=== PATIENT | female | born 1990 | race Caucasian/White ===

== ENCOUNTER 2016-10-27 09:40 | Emergency (ER) | payer OTHER ==
[2016-10-27 09:55] VITALS: BP 120/66; PULSE 71; TEMP 98.2; BMI 30.9
[2016-10-27] MEDS ORDERED: IBUPROFEN 400 MG TABLET (FP) PO ONE ×2 (10:32→10:38)
[2016-10-27] MEDS ORDERED: guaiFENesin/CODEINE 5 ML UNIT-DOSE CUPS PO ONE ×2 (10:32→10:38)
--- NOTE | 2016-10-27 10:33 | PDOC ---
History of Present Illness - General Chief Complaint: Cold Symptoms Stated Complaint: PAIN/ BACK, STERNUM Time Seen by Provider: 10/27/16 09:57 History Source: Patient - History of Present Illness Timing/Duration: reports: this morning Associated Symptoms: reports: chest pain/soreness, cough, nasal congestion, nasal drainage. denies: earache, fever/chills, headache, muscle aches, shortness of breath, sore throat, wheezing Past History - Past Medical History Allergies/Adverse Reactions: Allergies Allergy/AdvReac Type Severity Reaction Status Date / Time No Known Allergies Allergy Verified 10/27/16 09:50 Home Medications: Ambulatory Orders NK [No Known Home Medication] 10/27/16 Other medical history: denies - Family Disease History Family Disease History: Diabetes: Grandparents (mat grandmother) - Psycho/Social/Smoking Cessation Hx Anxiety: No Suicidal Ideation: No Smoking Status: No Smoking History: Never smoked Number of Cigarettes Smoked Daily: 0 Hx Substance Use Treatment: No Review of Systems - Review of Systems Constitutional: Yes: Malaise. No: Chills, Fever HEENTM: Yes: Nose Congestion. No: Ear Pain, Throat Pain Respiratory: Yes: Cough. No: Shortness of Breath, Wheezing ABD/GI: No: Diarrhea, Nausea, Vomiting Neurological: No: Headache *Physical Exam - Vital Signs Last Vital Signs Temp Pulse Resp BP Pulse Ox 98.2 F 71 16 120/66 100 10/27/16 09:51 10/27/16 09:51 10/27/16 09:51 10/27/16 09:51 10/27/16 09:51 - Physical Exam General Appearance: Yes: Appropriately Dressed. No: Apparent Distress HEENT: positive: Normal ENT Inspection, Normal Voice. negative: Scleral Icterus (R), Scleral Icterus (L) Neck: positive: Supple. negative: Lymphadenopathy (R), Lymphadenopathy (L) Respiratory/Chest: positive: Lungs Clear. negative: Normal Breath Sounds, Respiratory Distress Integumentary: positive: Dry, Warm Neurologic: positive: Fully Oriented, Alert, Normal Mood/Affect Medical Decision Making - Medical Decision Making 10/27/16 10:35 26-year-old female, no significant history, was in usual state of health until several hours ago when she developed cough with pleuritic chest and back pain. Also complaining of nasal congestion. No ear pain, sore throat, shortness of breath, wheezing, nausea, vomiting or diarrhea. No known sick contacts. Patient well-appearing and stable with unremarkable exam. Most likely viral URI. DC with supportive treatment *DC/Admit/Observation/Transfer Diagnosis at time of Disposition: Upper respiratory infection Qualifiers: URI type: unspecified viral URI Qualified Code(s): J06.9 - Acute upper respiratory infection, unspecified - Referrals Referrals: Jane Hidalgo [Primary Care Provider] - - Patient Instructions Printed Discharge Instructions: DI for Viral Upper Respiratory Infection -- Adult Additional Instructions: Rest, maintain adequate hydration and take [id number] medications as needed for symptoms - Post Discharge Activity Work/School Note: Back to Work
== END 2016-10-27 10:40 | disposition home or self-care (01) ==
LOC: JERFT 09:40
DX: J06.9 Acute upper respiratory infection, unspecified (principal)
CPT/HCPCS: 99281-25

== ENCOUNTER 2018-09-14 11:51 | Emergency (ER) | payer OTHER ==
[2018-09-14 11:56] VITALS: BP 129/84; PULSE 80; TEMP 98.5; BMI 32.5
[2018-09-14] MEDS ORDERED: predniSONE 20 MG TABLET (UD) PO ONE (12:30)
[2018-09-14] MEDS ORDERED: ALBUTEROL SO4 2.5/IPRATROPIUM 0.5 INH SOL 3 ML VIAL.NEB. NEB ONE (12:30)
--- NOTE | 2018-09-14 12:30 | PDOC ---
History of Present Illness - General Chief Complaint: Sore Throat Stated Complaint: FEVER, SORE THROAT Time Seen by Provider: 09/14/18 12:17 History Source: Patient Exam Limitations: No Limitations - History of Present Illness Timing/Duration: reports: getting worse Severity: reports: mild, moderate Past History - Past Medical History Allergies/Adverse Reactions: Allergies Allergy/AdvReac Type Severity Reaction Status Date / Time No Known Allergies Allergy Verified 09/14/18 11:54 Home Medications: Ambulatory Orders Albuterol Sulfate Inhaler - [Ventolin HFA Inhaler -] 1 - 2 inh PO QID #1 inhaler 09/14/18 predniSONE [Deltasone -] 20 mg PO BID #8 tablet 09/14/18 COPD: No - Family Disease History Family Disease History: Diabetes: Grandparents (mat grandmother) - Immunization History Immunization Up to Date: Yes - Suicide/Smoking/Psychosocial Hx Smoking Status: No Smoking History: Never smoked Number of Cigarettes Smoked Daily: 0 Hx Alcohol Use: No Drug/Substance Use Hx: No Hx Substance Use Treatment: No *Physical Exam - Vital Signs Last Vital Signs Temp Pulse Resp BP Pulse Ox 98.5 F 80 16 129/84 98 09/14/18 11:54 09/14/18 11:54 09/14/18 11:54 09/14/18 11:54 09/14/18 11:54 - Physical Exam General Appearance: Yes: Nourished, Appropriately Dressed, Apparent Distress HEENT: positive: Nasal Congestion, Rhinorrhea Neck: positive: Supple. negative: Tender Respiratory/Chest: positive: Decreased Breath Sounds, Rhonchi, Wheezing (coarse inspiratory and expiratory wheezing, worse upper airways but throughout with moist cough). negative: Lungs Clear, Normal Breath Sounds Gastrointestinal/Abdominal: positive: Soft Musculoskeletal: negative: Normal Inspection Extremity: positive: Normal Capillary Refill Integumentary: positive: Dry, Warm, Pale Neurologic: positive: glove stitcher II-XII NML intact, Fully Oriented, Alert, Normal Mood/ Affect Moderate Sedation - Procedure Monitoring Vital Signs: Procedure Monitoring Vital Signs Temperature 98.5 F 09/14/18 11:54 Pulse Rate 80 09/14/18 11:54 Respiratory Rate 16 09/14/18 11:54 Blood Pressure 129/84 09/14/18 11:54 O2 Sat by Pulse Oximetry (%) 98 01/10/19 11:54 Progress Note - Progress Note Progress Note: Upper respiratory infection, some improvement with DuoNeb, will treat with prednisone and albuterol inhalers have follow-up as there is no evidence of bacterial infection *DC/Admit/Observation/Transfer Diagnosis at time of Disposition: Upper respiratory infection, viral - Discharge Dispostion Disposition: HOME Condition at time of disposition: Stable Decision to Admit order: No - Referrals - Patient Instructions Printed Discharge Instructions: DI for Viral Upper Respiratory Infection -- Adult Additional Instructions: Rest, drink lots of fluids: Teas, water, soups, Pedialyte Saltwater gargles Steamy showers/seem to face break up mucus Avoid contact with others until fevers and cough resolved Lots of handwashing and good hygiene Continue [id number] medications for symptomatic relief Tylenol or Motrin for fever and pain Continue albuterol inhalers- 2 puffs every 4-6 hours for the next 2 days then as needed for continued cough Prednisone as directed until completed Followup with private physician in one to 2 days Return to emergency department / pediatric hospital for worsened symptoms, fevers, dehydration - Post Discharge Activity Forms/Work/School Notes: Back to Work
[2018-09-14] MEDS ORDERED: predniSONE 20 MG TABLET (UD) ONE (12:31)
== END 2018-09-14 13:07 | disposition home or self-care (01) ==
LOC: JERFT 11:51
PROC: 3E0F7GC Introduction of Other Therapeutic Substance into Respiratory Tract, Via Natural or Artificial Opening (ICD-10-PCS; principal; 2018-09-14)
DX: J06.9 Acute upper respiratory infection, unspecified (principal); B97.89 Other viral agents as the cause of diseases classified elsewhere
CPT/HCPCS: 99281-25

== ENCOUNTER 2018-11-22 08:05 | Emergency (ER) | payer OTHER ==
[2018-11-22 08:12] VITALS: TEMP 98.7; BMI 34.7
[2018-11-22] MEDS ORDERED: SODIUM CHLORIDE 500 ML IV STA (08:50)
[2018-11-22] MEDS ORDERED: ACETAMINOPHEN 1000 MG/100 ML VIAL (NON FORMULARY) IVPB ONE (09:05)
[2018-11-22] MEDS ORDERED: ACETAMINOPHEN INJECTION 100 ML IVPB ONE (09:17)
--- NOTE | 2018-11-22 09:17 | PDOC ---
History of Present Illness - General Chief Complaint: Pain Stated Complaint: ABD PAIN Time Seen by Provider: 11/22/18 08:45 History Source: Patient Exam Limitations: Clinical Condition - History of Present Illness Initial Comments: 11/22/18 09:11 Patient with no significant past medical history present with complaint of 2 day history of sore throat, nasal congestion and right lower quadrant abdominal pain. Denies nausea, vomiting, fever and chills. Patient reported pain as cramping right lower abdominal pain radiating to the back. Denies urinary frequency, dysuria or burning of urination. LMP October 23. Denies any other symptoms Timing/Duration: other (2 days) Past History - Past Medical History Allergies/Adverse Reactions: Allergies Allergy/AdvReac Type Severity Reaction Status Date / Time No Known Allergies Allergy Verified 11/22/18 08:12 Home Medications: Ambulatory Orders Ibuprofen 800 mg PO Q8H PRN #20 tablet 11/22/18 COPD: No - Family Disease History Family Disease History: Diabetes: Grandparents (mat grandmother) - Immunization History Immunization Up to Date: Yes - Suicide/Smoking/Psychosocial Hx Smoking Status: No Smoking History: Never smoked Number of Cigarettes Smoked Daily: 0 Information on smoking cessation initiated: No Hx Alcohol Use: No Drug/Substance Use Hx: No Hx Substance Use Treatment: No Review of Systems - Review of Systems Able to Perform ROS?: Yes Is the patient limited Tajik proficient: No Constitutional: No: Chills, Fever, Malaise HEENTM: Yes: Symptoms Reported, See HPI, Nose Congestion, Throat Pain. No: Eye Pain, Blurred Vision, Tearing, Recent change in vision, Double Vision, Cataracts , Ear Pain, Ocular Prothesis, Ear Discharge, Nose Pain, Tinnitus, Nose Bleeding , Hearing Loss, Throat Swelling, Mouth Pain, Dental Problems, Difficulty Swallowing, Mouth Swelling, Other Respiratory: No: Symptoms reported, See HPI, Cough, Orthopnea, Shortness of Breath, SOB with Exertion, SOB at Rest, Stridor, Wheezing, Productive cough, Hemoptysis, Other Cardiac (ROS): No: Symptoms Reported, See HPI, Chest Pain, Edema, Irregular Heart Rate, Lightheadedness, Palpitations, Syncope, Chest Tightness, Other ABD/GI: Yes: See HPI, Abdominal cramping (right lower abdominal pain). No: Abd. Pain w/ defecation, Blood Streaked Bowels, Constipated, Diarrhea, Difficulty Swallowing, Nausea, Rectal Bleeding, Vomiting : No: Burning, Dysuria, Discharge, Frequency, Flank Pain, Hematuria, Incontinence, Urgency Musculoskeletal: Yes: See HPI Neurological: No: Numbness, Paresthesia, Dizziness All Other Systems: Reviewed and Negative *Physical Exam - Vital Signs Last Vital Signs Temp Pulse Resp BP Pulse Ox 98.7 F 76 17 124/74 100 11/22/18 08:10 11/22/18 08:10 11/22/18 08:10 11/22/18 08:10 11/22/18 08:10 - Physical Exam Comments: 11/22/18 09:14 GENERAL: Well developed, well nourished. Awake and alert in mild acute distress. HEENT: Normocephalic, atraumatic. PERRLA, EOMI. No conjunctival pallor. Sclera are non-icteric. Moist mucous membranes. Oropharynx is clear. NECK: Supple. Full ROM. CARDIOVASCULAR: Regular rate and rhythm. No murmurs, rubs, or gallops. Distal pulses are 2+ and symmetric. PULMONARY: No evidence of respiratory distress. Lungs clear to auscultation bilaterally. No wheezing, rales or rhonchi. ABDOMINAL: mild tenderness to RLQ area.Soft. Non-distended. No rebound or guarding. No organomegaly. Normoactive bowel sounds. MUSCULOSKELETAL Normal range of motion at all joints. SKIN: Warm and dry. Normal capillary refill. No rashes. No jaundice. NEUROLOGICAL: Alert, awake, appropriate. Gait is normal without ataxia. PSYCHIATRIC: Cooperative. Good eye contact. Appropriate mood General Appearance: Yes: Nourished, Appropriately Dressed, Mild Distress Moderate Sedation - Procedure Monitoring Vital Signs: Procedure Monitoring Vital Signs Temperature 98.7 F 11/22/18 08:10 Pulse Rate 76 11/22/18 08:10 Respiratory Rate 17 11/22/18 08:10 Blood Pressure 124/74 11/22/18 08:10 O2 Sat by Pulse Oximetry (%) 100 11/22/18 08:10 ED Treatment Course - LABORATORY CBC & Chemistry Diagram: 11/22/18 09:00 11/22/18 09:00 Medical Decision Making - Medical Decision Making 11/22/18 09:15 Patient with no significant past medical history present with complaint of 2 day history of sore throat, nasal congestion and right lower abdominal pains radiating to the back and right thigh area. Patient with no nausea or vomiting or fevers. Denies diarrhea or constipation. Exam significant for mild tenderness to right lower quadrant without guarding or rebound. No pharyngeal erythema. Rapid strep test ordered to rule out strep pharyngitis. CBC, CMP labs ordered. UA urine culture labs ordered. IV fluids and normal saline ordered. Tylenol ordered for pain. Treat based on lab results. Abdominal CT with contrast after labs 11/22/18 11:56 CBC, CMP labs unremarkable. Hcg negative. UA shows no acute findings. Abd pelvic CT shows b/l ovarrian cyst with ruptured cyst otherwise with no acute findings on CT. Patient report improved pain with IV Tylenol. Patient stable for outpatient management of ruptured ovarian cyst with NSAIDS and INSTRUCTOR WARPER follow- up. Results and plan discussed with patient and pt report she will make f/u apt with her INSTRUCTOR WARPER *DC/Admit/Observation/Transfer Diagnosis at time of Disposition: Ovarian cyst Qualifiers: Laterality: bilateral Qualified Code(s): N83.201 - Unspecified ovarian cyst, right side Abdominal pain Qualifiers: Abdominal location: right lower quadrant Qualified Code(s): R10.31 - Right lower quadrant pain - Discharge Dispostion Disposition: HOME Condition at time of disposition: Stable Decision to Admit order: No - Prescriptions Prescriptions: Ibuprofen 800 mg PO Q8H PRN #20 tablet PRN Reason: pain - Referrals - Patient Instructions Printed Discharge Instructions: Ovarian Cyst Additional Instructions: Your labs was normal. Your CAT scan shows ovarian cysts which was ruptured which could be the cause of pain. Make follow-up appointment with her INSTRUCTOR WARPER for reevaluation and take prescribed Motrin as needed for pain. - Post Discharge Activity Forms/Work/School Notes: Back to Work
--- NOTE | 2018-11-22 09:21 | PDOC ---
*Physical Exam - Vital Signs Last Vital Signs Temp Pulse Resp BP Pulse Ox 98.7 F 76 17 124/74 100 11/22/18 08:10 11/22/18 08:10 11/22/18 08:10 11/22/18 08:10 11/22/18 08:10 - Physical Exam Comments: 11/22/18 09:19 The patient was examined by [RUBIA Spaulding] under my direct supervision. I personally evaluated the patient. I concur with the above findings and the plan of care.July vague ED Treatment Course - LABORATORY CBC & Chemistry Diagram: 11/22/18 09:00 11/22/18 09:00 *DC/Admit/Observation/Transfer Diagnosis at time of Disposition: Ovarian cyst, Abdominal pain - Discharge Dispostion Disposition: HOME Condition at time of disposition: Stable - Prescriptions Prescriptions: Ibuprofen 800 mg PO Q8H PRN #20 tablet PRN Reason: pain - Referrals - Patient Instructions Printed Discharge Instructions: Ovarian Cyst Additional Instructions: Your labs was normal. Your CAT scan shows ovarian cysts which was ruptured which could be the cause of pain. Make follow-up appointment with her ROTARY DRIER FEEDER for reevaluation and take prescribed Motrin as needed for pain. - Post Discharge Activity Forms/Work/School Notes: Back to Work
[2018-11-22 09:22] LABS: BASO % 0.3 % (0-2.0); EOS % 0.7 % (0-4.5); HEMATOCRIT 38.6 % (32.4-45.2); HEMOGLOBIN 13.1 GM/dL (10.7-15.3); LYMPH % 9.5 % (8-40); MCHC 33.9 g/dl (32.0-36.0); MEAN CELL VOLUME 85.5 fl (80-96); MEAN PLT VOLUME 8.9 fl (7.5-11.1); MONO % 4.4 % (3.8-10.2); NEUT % 85.1 % (42.8-82.8); PLATELET COUNT 230 K/MM3 (134-434); RBC 4.51 M/mm3 (3.60-5.2); RDW 13.5 % (11.6-15.6); WHITE BLOOD COUNT 9.7 K/mm3 (4.0-10.0)
[2018-11-22 09:30] LABS: HCG,QUALITATIVE URINE Negative; URINE APPEARANCE CLEAR; URINE BILIRUBIN NEGATIVE (<2.0 mg/dL); URINE COLOR YELLOW; URINE GLUCOSE (UA) NEGATIVE (NEGATIVE); URINE KETONE NEGATIVE (NEGATIVE); URINE LEUK ESTERASE NEGATIVE (NEGATIVE); URINE NITRITE NEGATIVE (NEGATIVE); URINE PROTEIN NEGATIVE (NEGATIVE); URINE UROBILINOGEN NEGATIVE mg/dL (0.2-1.0)
[2018-11-22 09:38] LABS: INR 1.07 (0.83-1.09); PROTHROMBIN TIME (PATIENT) 12.6 SEC (9.7-13.0)
[2018-11-22 09:41] LABS: ACTIVATED PTT 33.6 SECONDS (25.2-36.5)
[2018-11-22 09:43] LABS: ALBUMIN 3.8 g/dl (3.4-5.0); ALK PHOS 80 U/L (45-117); ANION GAP 4 MMOL/L (8-16); BILIRUBIN,TOTAL 0.4 mg/dL (0.2-1); BLOOD UREA NITROGEN 6 mg/dL (7-18); CALCIUM 8.8 mg/dL (8.5-10.1); CHLORIDE 108 mmol/L (98-107); CO2 27 mmol/L (21-32); CREATININE 0.7 mg/dL (0.55-1.3); GLUCOSE,RANDOM 112 mg/dL (74-106); SGOT/AST 7 U/L (15-37); SGPT/ALT 14 U/L (13-61); SODIUM 139 mmol/L (136-145); TOT PROT 6.8 g/dl (6.4-8.2)
[2018-11-22 11:46] VITALS: BP 107/63; PULSE 72
== END 2018-11-22 12:30 | disposition home or self-care (01) ==
LOC: JER 08:05
PROC: 3E033NZ Introduction of Analgesics, Hypnotics, Sedatives into Peripheral Vein, Percutaneous Approach (ICD-10-PCS; principal; 2018-11-22)
PROC: 3E0337Z Introduction of Electrolytic and Water Balance Substance into Peripheral Vein, Percutaneous Approach (ICD-10-PCS; 2018-11-22)
DX: N83.201 Unspecified ovarian cyst, right side (principal); R10.31 Right lower quadrant pain
CPT/HCPCS: 36415; 74177-TC; 80053; 81003; 84703; 85025; 85610; 85730; 87070; 87086; 87880; 99282-25; J0131

== ENCOUNTER 2018-11-24 09:42 | Emergency (ER) | payer OTHER ==
[2018-11-24 09:50] VITALS: BP 120/69; PULSE 73; TEMP 98.4; BMI 34.7
--- NOTE | 2018-11-24 10:20 | PDOC ---
History of Present Illness - General History Source: Patient - History of Present Illness Associated Symptoms: denies: fever/chills, nausea/vomiting <Omid Ron - Last Filed: 11/24/18 10:22> <Maxine Garcia - Last Filed: 11/24/18 15:28> - General Chief Complaint: Pain, Acute Stated Complaint: ABD PAIN Time Seen by Provider: 11/24/18 10:12 Past History - Past Medical History COPD: No - Family Disease History Family Disease History: Diabetes: Grandparents (mat grandmother) - Immunization History Immunization Up to Date: Yes - Suicide/Smoking/Psychosocial Hx Smoking Status: No Smoking History: Never smoked Number of Cigarettes Smoked Daily: 0 Hx Alcohol Use: No Drug/Substance Use Hx: No Hx Substance Use Treatment: No <Omid Ron - Last Filed: 11/24/18 10:22> <Maxine Garcia - Last Filed: 11/24/18 15:28> - Past Medical History Allergies/Adverse Reactions: Allergies Allergy/AdvReac Type Severity Reaction Status Date / Time No Known Allergies Allergy Verified 11/24/18 09:45 Home Medications: Ambulatory Orders Ibuprofen 800 mg PO Q8H PRN #20 tablet 11/22/18 Review of Systems - Review of Systems Constitutional: No: Chills, Fever ABD/GI: No: Nausea, Vomiting, Abdominal cramping : No: Burning, Dysuria, Discharge, Flank Pain, Hematuria <Omid Ron - Last Filed: 11/24/18 10:22> *Physical Exam - Vital Signs Last Vital Signs Temp Pulse Resp BP Pulse Ox 98.4 F 73 16 120/69 100 11/24/18 09:45 11/24/18 09:45 11/24/18 09:45 11/24/18 09:45 11/24/18 09:45 - Physical Exam General Appearance: Yes: Appropriately Dressed. No: Apparent Distress HEENT: positive: Normal Voice Neck: positive: Supple Respiratory/Chest: negative: Respiratory Distress Gastrointestinal/Abdominal: positive: Soft. negative: Tender Integumentary: positive: Dry, Warm Neurologic: positive: Fully Oriented, Alert, Normal Mood/Affect <Omid Ron - Last Filed: 11/24/18 10:22> - Vital Signs Last Vital Signs Temp Pulse Resp BP Pulse Ox 98.4 F 73 16 120/69 100 11/24/18 09:45 11/24/18 09:45 11/24/18 09:45 11/24/18 09:45 11/24/18 09:45 <Maxine Garcia - Last Filed: 11/24/18 15:28> Moderate Sedation - Procedure Monitoring Vital Signs: Procedure Monitoring Vital Signs Temperature 98.4 F 11/24/18 09:45 Pulse Rate 73 11/24/18 09:45 Respiratory Rate 16 11/24/18 09:45 Blood Pressure 120/69 11/24/18 09:45 O2 Sat by Pulse Oximetry (%) 100 11/24/18 09:45 <Omid Ron - Last Filed: 11/24/18 10:22> - Procedure Monitoring Vital Signs: Procedure Monitoring Vital Signs Temperature 98.4 F 11/24/18 09:45 Pulse Rate 73 11/24/18 09:45 Respiratory Rate 16 11/24/18 09:45 Blood Pressure 120/69 11/24/18 09:45 O2 Sat by Pulse Oximetry (%) 100 11/24/18 09:45 <Maxine Garcia - Last Filed: 11/24/18 15:28> Medical Decision Making - Medical Decision Making 11/24/18 10:20 28-year-old female diagnosed with possible ruptured cyst on CT in ER at [facility] 2 days ago after p/w R pelvic pain. Was given GENERAL LOT ATTENDANT follow-up, but returns now stating she called the GENERAL LOT ATTENDANT's clinic to make an appointment but was told to come to the ED for unclear reasons. Patient not having any abdominal pain, vaginal bleeding, fever, chills or nausea, vomiting at this time. Also requesting that specific work note from her job be filled out regarding any limitations. Pt well jeimy and stable w/ benign abd. Dc w/ mat puncher f/u as needed. Work note given denoting no limitation needed <Omid Ron - Last Filed: 11/24/18 10:22> *DC/Admit/Observation/Transfer <Omid Ron Last Filed: 11/24/18 10:22> - Attestations Physician Attestion: I reviewed the case with the mid-level practitioner and agree with the mid- level practitioner's assessment, diagnosis and disposition. <Maxine Garcia - Last Filed: 11/24/18 15:28> Diagnosis at time of Disposition: Follow up - Discharge Dispostion Disposition: HOME Condition at time of disposition: Good - Patient Instructions Additional Instructions: Please follow up with your GENERAL LOT ATTENDANT at this time - Post Discharge Activity Forms/Work/School Notes: Back to Work
== END 2018-11-24 10:25 | disposition home or self-care (01) ==
LOC: JER 09:42
DX: Z09 Encounter for follow-up examination after completed treatment for conditions other than malignant neoplasm (principal)
CPT/HCPCS: 99282-25

== ENCOUNTER 2020-05-16 11:14 | Emergency (ER) | payer OTHER ==
[2020-05-16 11:33] VITALS: BP 124/71; PULSE 75; TEMP 97.9; BMI 37.2
[2020-05-16 12:36] LABS: BASO % 0.9 % (0-2.0); HEMATOCRIT 38.4 % (32.4-45.2); HEMOGLOBIN 12.7 GM/dL (10.7-15.3); MCH 28.3 pg (25.7-33.7); MEAN CELL VOLUME 85.8 fl (80-96); MEAN PLT VOLUME 8.6 fl (7.5-11.1); MONO % 5.6 % (3.8-10.2); NEUT % 61.5 % (42.8-82.8); PLATELET COUNT 289 K/MM3 (134-434); RBC 4.47 M/mm3 (3.60-5.2); RDW 13.1 % (11.6-15.6); WHITE BLOOD COUNT 8.4 K/mm3 (4.0-10.0)
[2020-05-16 12:38] LABS: URINE APPEARANCE CLEAR; URINE BILIRUBIN NEGATIVE (NEGATIVE); URINE COLOR YELLOW; URINE GLUCOSE (UA) NEGATIVE (NEGATIVE); URINE KETONE NEGATIVE (NEGATIVE); URINE LEUK ESTERASE NEGATIVE (NEGATIVE); URINE NITRITE NEGATIVE (NEGATIVE); URINE PROTEIN NEGATIVE (NEGATIVE)
[2020-05-16 12:41] LABS: HCG,QUALITATIVE URINE Negative
[2020-05-16] MEDS ORDERED: IBUPROFEN 400 MG TABLET (FP) PO ONE ×2 (12:45→12:48)
[2020-05-16 13:08] LABS: ALBUMIN 3.7 g/dl (3.4-5.0); BILIRUBIN,TOTAL 0.3 mg/dL (0.2-1); BLOOD UREA NITROGEN 6.7 mg/dL (7-18); CREATININE 0.7 mg/dL (0.55-1.3); TOT PROT 6.9 g/dl (6.4-8.2)
--- NOTE | 2020-05-16 14:23 | PDOC ---
History of Present Illness - General Chief Complaint: Pain Stated Complaint: ABD PAIN Time Seen by Provider: 05/16/20 11:43 History Source: Patient - History of Present Illness Timing/Duration: reports: getting worse, intermittent Quality: reports: severe Abdominal Pain Onset Location: reports: suprapubic Past History - Medical History Allergies/Adverse Reactions: Allergies Allergy/AdvReac Type Severity Reaction Status Date / Time No Known Allergies Allergy Verified 05/16/20 11:25 Home Medications: Ambulatory Orders Ibuprofen 800 mg PO Q8H PRN #20 tablet 11/22/18 Ibuprofen [Motrin -] 800 mg PO Q6H #30 tablet 05/16/20 Ibuprofen [Motrin -] 800 mg PO Q6H #30 tablet 05/16/20 COPD: No - Reproductive History Is Patient Now?: No - Immunization History Immunization Up to Date: Yes - Psycho-Social/Smoking History Smoking Status: No Smoking History: Never smoked Number of Cigarettes Smoked Daily: 0 Information on smoking cessation initiated: Yes - Substance Abuse Hx (Audit-C & DAST Scrn) How often the patient has a drink containing alcohol: Never Score: In Men: 4 or > Positive; In Women: 3 or > Positive: 0 Screen Result (Pos requires Nsg. Audit-10AR): Negative In the last yr the pt used illegal drug/Rx for NonMed reason: No Score: Yes response is considered Positive: 0 Screen Result (Positive result requires Nsg. DAST-10): Negative Review of Systems - Review of Systems Constitutional: No: Chills, Fever ABD/GI: No: Constipated, Diarrhea, Nausea, Vomiting : No: Burning, Dysuria, Discharge, Frequency, Flank Pain, Hematuria *Physical Exam - Vital Signs Last Vital Signs Temp Pulse Resp BP Pulse Ox 97.9 F 75 19 124/71 98 05/16/20 11:19 05/16/20 11:19 05/16/20 11:19 05/16/20 11:19 05/16/20 11:19 - Physical Exam General Appearance: Yes: Appropriately Dressed. No: Apparent Distress HEENT: positive: Normal Voice Neck: positive: Supple Respiratory/Chest: negative: Respiratory Distress Female Pelvic Exam: positive: normal external exam, adnexal tenderness (on the R). negative: CMT, lesions, vaginal bleeding Gastrointestinal/Abdominal: positive: Normal Bowel Sounds, Tender (poorly localized ttp to R side cyrus abd, ND, soft, +BS), Soft. negative: Distended, Guarding Musculoskeletal: negative: CVA Tenderness Integumentary: positive: Dry, Warm Neurologic: positive: Fully Oriented, Alert, Normal Mood/Affect ED Treatment Course - LABORATORY CBC & Chemistry Diagram: 05/16/20 12:04 05/16/20 12:04 - ADDITIONAL ORDERS Additional order review: Laboratory Results 05/16/20 05/16/20 12:04 12:04 Sodium 140 Potassium 4.0 Chloride 107 Carbon Dioxide 29 Anion Gap 5 L BUN 6.7 L Creatinine 0.7 Est GFR (CKD-EPI)AfAm 136.66 Est GFR (CKD-EPI)NonAf 117.91 Random Glucose 99 Calcium 9.0 Total Bilirubin 0.3 AST 6 L ALT 17 Alkaline Phosphatase 80 Total Protein 6.9 Albumin 3.7 Urine Color Yellow Urine Appearance Clear Urine pH 7.0 Ur Specific [place] 1.022 Urine Protein Negative Urine Glucose (UA) Negative Urine Ketones Negative Urine Blood Negative Urine Nitrite Negative Urine Bilirubin Negative Urine Urobilinogen 1.0 Ur Leukocyte Esterase Negative Urine HCG, Qual Negative 05/16/20 12:04 RBC 4.47 MCV 85.8 MCHC 33.0 RDW 13.1 MPV 8.6 Neutrophils % 61.5 D Lymphocytes % 31.0 D Monocytes % 5.6 Eosinophils % 1.0 Basophils % 0.9 - RADIOLOGY Radiology Studies Ordered: Category Date Time Status PELVIC / BLADDER US [US] Stat Ultrasound 05/16/20 12:45 Ordered TRANSVAGINAL ULTRASOUND US [US] Stat Ultrasound 05/16/20 12:44 Ordered - Medications Given in the ED: ED Medications Discontinued Medications Generic Name Dose Route Start Last Admin Trade Name Freq PRN Reason Stop Dose Admin Ibuprofen 800 mg 05/16/20 12:45 05/16/20 12:49 Motrin - PO 05/16/20 12:46 800 mg ONCE ONE Administration Medical Decision Making - Medical Decision Making 05/16/20 13:58 29-year-old female, history of R ovarian cyst, here with persistent R pelvic pain for 2 weeks. States pain worsened last night, throbbing in nature and 10 out of 10, not relieved with Tylenol. States pain might be similar to prior ovarian cyst. LMP normal > 2 weeks ago. No vaginal discharge, odor, dysuria, nausea, vomiting, fever, chills or change in bowel movements. see exam R/o torsion vs PID vs UTI, less likely appy or renal colic -pain control -Labs -US 05/16/20 16:25 Labs unremarkable and US read as multiple R ovarian cysts, larger one ~4cm. Also seen is a 2cm L ovarian cyst, w/ no e/o torsion. Pt better w/ meds. Will dc w/ DIVISION ROAD SUPERVISOR f/u Discharge - Discharge Information Problems reviewed: Yes Clinical Impression/Diagnosis: Ovarian cyst Qualifiers: Laterality: bilateral Qualified Code(s): N83.201 - Unspecified ovarian cyst, right side; N83.202 - Unspecified ovarian cyst, left side Condition: Improved Disposition: HOME - Additional Discharge Information Prescriptions: Ibuprofen [Motrin -] 800 mg PO Q6H #30 tablet Ibuprofen [Motrin -] 800 mg PO Q6H #30 tablet - Follow up/Referral Referrals: Karly You MD [Primary Care Provider] - - Patient Discharge Instructions Additional Instructions: Your ultrasound shows that you have multiple cysts by your right ovary and one cyst on your left ovary Take Motrin as needed for pain and follow-up with your DIVISION ROAD SUPERVISOR prescription - Post Discharge Activity Work/Back to School Note: Back to Work
[2020-05-16] MEDS ORDERED: ACETAMINOPHEN 500 MG TABLET (FP) PO ONE (15:19)
[2020-05-16] MEDS ORDERED: ACETAMINOPHEN 500 MG TABLET (FP) ONE (15:29)
== END 2020-05-16 16:30 | disposition home or self-care (01) ==
LOC: JER 11:14
DX: N83.201 Unspecified ovarian cyst, right side (principal); N83.202 Unspecified ovarian cyst, left side
CPT/HCPCS: 36415; 76830-TC; 76856-TC; 80053; 81003; 84703; 85025; 87491; 87591; 99285-25